=== PATIENT | male | born 1985 | race Caucasian/White ===

== ENCOUNTER 2018-06-02 12:46 | Emergency (ER) | payer BC ==
[2018-06-02] MEDS ORDERED: ASPIRIN 81 MG TABLET, CHEWABLE PO ONE (13:35)
[2018-06-02] MEDS ORDERED: ONDANSETRON HCL INJ/PF 4 MG/2 ML SDV IV ONE (13:37)
[2018-06-02] MEDS ORDERED: NORMAL SALINE 1000 ML 1,000 ML IV ONE ×3 (13:37→17:32)
--- NOTE | 2018-06-02 13:40 | ER Document Report ---
ED Medical Screen (RME) - General Chief Complaint: Nausea/Vomiting/Diarrhea Stated Complaint: NAUSEA/VOMITING/DIARRHEA Time Seen by Provider: 06/02/18 13:35 Mode of Arrival: Ambulatory Information source: Patient, Relative Notes: 33-year-old male with generalized anxiety disorder presents with complaint of nausea, vomiting and diarrhea as well as chest pain. Patient states chest pain started 1 week prior to arrival. It is located along his left chest and described as an intermittent ache. Patient's nausea started last night but states the vomiting and diarrhea started this morning. Patient denies sick contacts, recent antibiotic use, recent travel. I have greeted and performed a rapid initial assessment of this patient. A comprehensive ED assessment and evaluation of the patient, analysis of test results and completion of medical decision making process we will be contacted by additional ED providers. PHYSICAL EXAMINATION: Vital signs reviewed GENERAL: Well-appearing, well-nourished and in no acute distress. LUNGS: No respiratory distress Musculoskeletal: Normal range of motion NEUROLOGICAL: Normal speech, normal gait. PSYCH: Normal mood, normal affect. SKIN: Warm, Dry, normal turgor, no rashes or lesions noted. TRAVEL OUTSIDE OF THE [place] IN LAST 30 DAYS: No - HPI Onset: Last week Onset/Duration: Gradual Quality of pain: Achy, Cramping - Prior to bowel movements Associated Symptoms: Abdominal pain, Body/muscle aches, Chest pain, Diarrhea, Nausea Exacerbated by: Denies Relieved by: Denies Similar symptoms previously: No Recently seen / treated by doctor: No - Related Data Smoking: Non-smoker Frequency of alcohol use: None Drug Abuse: None Allergies/Adverse Reactions: No Known Allergies Allergy (Unverified 06/02/18 12:46) Past Medical History Renal/ Medical History: Denies: Hx Peritoneal Dialysis Past Surgical History: Reports: Hx Oral Surgery - wisdom teeth Physical Exam - Vital signs Vitals: Temp Pulse Resp BP Pulse Ox 97.6 F 100 18 103/69 100 06/02/18 13:13 06/02/18 13:13 06/02/18 13:13 06/02/18 13:13 06/02/18 13:13 Course - Vital Signs Vital signs: Temp Pulse Resp BP Pulse Ox 97.6 F 100 18 103/69 100 06/02/18 13:13 06/02/18 13:13 06/02/18 13:13 06/02/18 13:13 06/02/18 13:13 Doctor's Discharge - Discharge Referrals: ROXANE BAER MD [Primary Care Provider] - Follow up as needed
[2018-06-02 14:23] LABS: ABSOLUTE LYMPHOCYTES (AUTO) 0.8 10^3/uL (0.5-4.7); ABSOLUTE MONOCYTES (AUTO) 0.6 10^3/uL (0.1-1.4); ABSOLUTE NEUT (AUTO) 11.8 10^3/uL (1.7-8.2); BASOPHILS % (AUTO) 0.1 % (0-2); EOSINOPHILS % (AUTO) 0.2 % (0-6); HEMATOCRIT 48.9 % (37.9-51.0); HEMOGLOBIN 17.6 g/dL (13.5-17.0); LYMPHOCYTES % (AUTO) 5.9 % (13-45); MEAN CORPUSCULAR HEMOGLOBIN 30.7 pg (27.0-33.4); MEAN CORPUSCULAR HGB CONC 35.9 g/dL (32.0-36.0); MEAN CORPUSCULAR VOLUME 86 fl (80-97); MONOCYTES % (AUTO) 4.9 % (3-13); PLATELET COUNT 238 10^3/uL (150-450); RED BLOOD COUNT 5.72 10^6/uL (4.35-5.55); SEGMENTED NEUTROPHILS % (AUTO) 88.9 % (42-78); TOTAL CELLS COUNTED % (AUTO) 100 %; WHITE BLOOD COUNT 13.2 10^3/uL (4.0-10.5)
--- NOTE | 2018-06-02 14:30 | RADIOLOGY REPORT (SQ) ---
EXAM DESCRIPTION: CHEST 2 VIEWS COMPLETED DATE/TIME: 06/02/2018 2:12 pm REASON FOR STUDY: chest pain COMPARISON: None. EXAM PARAMETERS: NUMBER OF VIEWS: two views TECHNIQUE: Digital Frontal and Lateral radiographic views of the chest acquired. RADIATION DOSE: NA LIMITATIONS: none FINDINGS: LUNGS AND PLEURA: No opacities, masses or pneumothorax. No pleural effusion. MEDIASTINUM AND HILAR STRUCTURES: No masses or contour abnormalities. HEART AND VASCULAR STRUCTURES: Heart normal size. No evidence for failure. BONES: No acute findings. HARDWARE: None in the chest. OTHER: No other significant finding. IMPRESSION: NO ACUTE RADIOGRAPHIC FINDING IN THE CHEST. TECHNICAL DOCUMENTATION: JOB ID: [id number] [employer]- All Rights Reserved Reading location - IP/workstation name: [email or web address]
[2018-06-02 14:38] LABS: ALANINE AMINOTRANSFERASE 29 U/L (21-72); ALBUMIN 4.7 g/dL (3.5-5.0); ALKALINE PHOSPHATASE 87 U/L (38-126); ANION GAP 14 (5-19); ASPARTATE AMINO TRANSFERASE 26 U/L (17-59); BILIRUBIN,DIRECT 0.4 mg/dL (0.0-0.4); BILIRUBIN,TOTAL 1.8 mg/dL (0.2-1.3); BLOOD UREA NITROGEN 18 mg/dL (7-20); CALCIUM 9.4 mg/dL (8.4-10.2); CARBON DIOXIDE 23 mmol/L (22-30); CHLORIDE 105 mmol/L (98-107); CREATINE KINASE 62 U/L (55-170); GLUCOSE 107 mg/dL (75-110); LIPASE 136.6 U/L (23-300); POTASSIUM 4.3 mmol/L (3.6-5.0); SODIUM 141.7 mmol/L (137-145); TOTAL PROTEIN 7.3 g/dL (6.3-8.2)
[2018-06-02 14:51] LABS: CREATINE KINASE MB < 0.22 ng/mL (<4.55)
[2018-06-02 15:04] LABS: TROPONIN I 0.036 ng/mL
--- NOTE | 2018-06-02 15:43 | ER Document Report ---
ED General - General Chief Complaint: Nausea/Vomiting/Diarrhea Stated Complaint: NAUSEA/VOMITING/DIARRHEA Time Seen by Provider: 06/02/18 13:35 Mode of Arrival: Ambulatory Notes: 33-year-old male with generalized anxiety disorder presents with complaint of nausea, vomiting and diarrhea as well as chest pain. Patient states chest pain started 1 week prior to arrival. It is located along his left chest and described as an intermittent ache. Patient's nausea started last night but states the vomiting and diarrhea started this morning. Patient denies sick contacts, recent antibiotic use, recent travel. TRAVEL OUTSIDE OF THE [place] IN LAST 30 DAYS: No - Related Data Allergies/Adverse Reactions: No Known Allergies Allergy (Verified 06/02/18 17:32) Past Medical History - General Information source: Patient, Relative - Social History Smoking Status: Never Smoker Frequency of alcohol use: None Drug Abuse: None Family History: Reviewed & Not Pertinent Patient has suicidal ideation: No Patient has homicidal ideation: No Renal/ Medical History: Denies: Hx Peritoneal Dialysis Past Surgical History: Reports: Hx Oral Surgery - wisdom teeth Physical Exam - Vital signs Vitals: Temp Pulse Resp BP Pulse Ox 97.6 F 100 18 103/69 100 06/02/18 13:13 06/02/18 13:13 06/02/18 13:13 06/02/18 13:13 06/02/18 13:13 Course - Re-evaluation Re-evalutation: 06/02/18 17:59 Labs and imaging obtained. Troponin indeterminate. EKG does not show an acute process. Patient given fluids as he was tachycardic and has had N/V/D today. Tachycardia resolving. Discussed admission versus discharge home with the patient as his troponin is indeterminate. Patient has heart score of 0. I contacted the hospitalist. Dr. August does not feel the patient needs to be admitted. Will repeat troponin and EKG. 06/02/18 18:43 EKG: Ventricular rate 113, RI interval 128, QRS duration 92, QTc 434, sinus tachycardia. No ST segment elevation. Repeat EKG: Ventricular rate 95, RI interval 132, QRS duration 90, QTc 423, sinus rhythm. No ST segment elevation. 06/02/18 19:12 Repeat troponin is normal. Repeat EKG is normal. Patient re-evaluated. Feeling better. No chest pain or palpitations while in the ED. I will discharge patient home. I instructed him to follow up with his primary care physician this week, to take medication as directed, and to return for worsening symptoms. Patient is agreeable with the plan of care. - Vital Signs Vital signs: Temp Pulse Resp BP Pulse Ox 98.7 F 100 19 121/85 100 06/02/18 18:15 06/02/18 13:13 06/02/18 18:06 06/02/18 18:06 06/02/18 18:06 - Laboratory Result Diagrams: 06/02/18 13:56 06/02/18 13:56 Laboratory results interpreted by me: 06/02/18 06/02/18 06/02/18 13:56 13:56 18:00 WBC 13.2 H RBC 5.72 H Hgb 17.6 H Seg Neutrophils % 88.9 H Lymphocytes % 5.9 L Absolute Neutrophils 11.8 H Total Bilirubin 1.8 H Urine Ketones 80 H Discharge - Discharge Clinical Impression: Gastroenteritis, Palpitations Condition: Good Disposition: HOME, SELF-CARE Instructions: Gastroenteritis (adult) ([facility]), Palpitations (Irregular or Rapid Heartrate) ([facility]) Prescriptions: Ondansetron [Zofran Odt 4 mg Tablet] 1 tab PO Q4H PRN #15 tab.rapdis PRN Reason: For Nausea/Vomiting Referrals: ROXANE BAER MD [NO LOCAL MD] - Follow up as needed
[2018-06-02 18:24] LABS: APPEARANCE,URINE CLEAR; BILIRUBIN,URINE NEGATIVE (NEGATIVE); COLOR,URINE YELLOW; GLUCOSE, URINE NEGATIVE (NEGATIVE); KETONES,URINE 80 mg/dL (NEGATIVE); LEUKOCYTE ESTERASE,URINE NEGATIVE (NEGATIVE); NITRITE,URINE NEGATIVE (NEGATIVE); PROTEIN,URINE NEGATIVE (NEGATIVE); URINE SPECIFIC GRAVITY 1.019; UROBILINOGEN,URINE NEGATIVE mg/dL (<2.0)
[2018-06-02 18:37] LABS: URINE AMPHETAMINES SCREEN NEGATIVE; URINE BARBITURATES SCREEN NEGATIVE; URINE BENZODIAZEPINES SCREEN NEGATIVE; URINE COCAINE SCREEN NEGATIVE; URINE MARIJUANA (THC) SCREEN NEGATIVE; URINE METHADONE SCREEN NEGATIVE; URINE PHENCYCLIDINE SCREEN NEGATIVE
[2018-06-02 19:48] VITALS: BP 111/82
--- NOTE | 2018-06-02 20:11 | EKG REPORT ---
SEVERITY:- NORMAL ECG - SINUS RHYTHM : Confirmed by: Justa Forrester 02-Jun-2018 20:10:46
--- NOTE | 2018-06-02 20:13 | EKG REPORT ---
SEVERITY:- BORDERLINE ECG - SINUS TACHYCARDIA WITH SINUS ARRHYTHMIA BORDERLINE RIGHT AXIS DEVIATION : Confirmed by: Justa Forrester 02-Jun-2018 20:11:27
== END 2018-06-02 19:52 | disposition home or self-care (01) ==
LOC: ER 12:46
DX: K52.9 Noninfective gastroenteritis and colitis, unspecified (principal); R00.2 Palpitations; R11.2 Nausea with vomiting, unspecified; R07.9 Chest pain, unspecified; R00.0 Tachycardia, unspecified
CPT/HCPCS: 93005; 99285; 96360; 96361; 36415; 82553; 82550; 83690; 85025; 80053; 81001; 84484; 80307; 85379; 71046; 93010; J7030